=== PATIENT | female | born 1945 | race Caucasian/White ===

== ENCOUNTER 2024-06-15 10:33 | Inpatient (IN) | payer MEDICARE, MEDICAID ==
[2024-06-15 11:13] LABS: #Basophils 0.04 10x3/uL (0.0-0.2); %Basophils 0.4 % (0.0-1.0); %Eosinophils 1.6 % (0.0-10.0); %Lymphocytes 11.2 % (21.0-51.0); %Monocytes 8.8 % (0.0-10.0); %Neutrophils 77.6 % (42.0-75.0); Hematocrit 38.7 % (36.0-47.0); Hemoglobin 12.8 g/dL (12.0-16.0); Mean Corpuscular HGB CONC 33.1 g/dL (32.0-36.0); Mean Corpuscular Hemoglobin 31.4 pg (27.0-31.0); Mean Corpuscular Volume 95.1 fL (78.0-98.0); Mean Platelet Volume 9.5 fL (7.4-10.4); Platelet Count 337 10x3/uL (130-400); RBC Distribution Width 13.5 % (11.5-14.5); Red Blood Cell (RBC) Count 4.07 mill/uL (4.20-5.40)
[2024-06-15 11:41] LABS: ALT (SGPT) 9 U/L (8-55); AST (SGOT) 16 U/L (5-34); Albumin 3.4 g/dL (3.4-4.8); Alkaline Phosphatase 128 U/L (40-110); Anion Gap 19 mmol/L (10-20); BUN (Urea Nitrogen) 48 mg/dL (9.8-20.1); Bilirubin, Total 0.4 mg/dL (0.2-1.2); Calc. Creatinine Clearance 0 mL/min (70-130); Calcium 9.7 mg/dL (7.8-10.44); Carbon Dioxide 14 mmol/L (23-31); Chloride 112 mmol/L (98-107); Estimated GFR 29; Globulin 3.7 g/dL (2.4-3.5); Glucose 129 mg/dL (83-110); Lipase 14 U/L (8-78); Magnesium 1.4 mg/dL (1.6-2.6); Protein, Total 7.1 g/dL (5.8-8.1); Sodium 140 mmol/L (136-145)
[2024-06-15 11:47] LABS: Troponin I 0.024 ng/mL (< 0.028)
[2024-06-15] MEDS ORDERED: Ondansetron PF 4 MG/2 ML Vial ONE (11:52)
[2024-06-15] MEDS ORDERED: Magnesium 2 GM/50 ML BAG (IN WATER) ONE (12:58)
[2024-06-15 14:59] LABS: Lactic Acid 0.62 mmol/L (0.5-2.2)
[2024-06-15 15:25] LABS: Bacteria/HPF 4+ HPF (None Seen); Bilirubin Negative (Negative); Blood, Urine Negative (Negative); CAUTI Indications for Culture Alt mental st,lethar; Clarity Clear (Clear); Glucose, Urine (Dipstick) Normal (Negative); Ketone, Urine Trace mg/dL (Negative); Leukocyte 500 Leu/uL (Negative); Nitrite 2+ (Negative); Protein, Urine (Dipstick) Negative (Neg-Trace); RBC/HPF None Seen HPF (0-3); Specific Gravity, Urine 1.007 (1.002-1.036); Squamous Epithelial 0-3 HPF (0-3); Urobilinogen Normal mg/dL (Less than 2); pH, Urine 5.5 (5.0-9.0)
[2024-06-15 15:27] LABS: Urine Culture Reflex Yes Yes
[2024-06-15] MEDS ORDERED: cefTRIAXone (ROCEPHIN) 2 GM VIAL ONE (15:45)
[2024-06-15] MEDS ORDERED: Sodium Chloride 0.9% 100 ML ONE (15:45)
[2024-06-15] MEDS ORDERED: Ondansetron PF 4 MG/2 ML Vial IVP PRN (16:23)
[2024-06-15 17:49] VITALS: BMI 20.9
[2024-06-15] MEDS: Sodium Chloride 0.9% 1,000 ML IV SCH (18:36)
[2024-06-16 05:51] LABS: #Basophils 0.03 10x3/uL (0.0-0.2); %Basophils 0.4 % (0.0-1.0); %Eosinophils 3.5 % (0.0-10.0); %Lymphocytes 13.7 % (21.0-51.0); %Monocytes 7.8 % (0.0-10.0); %Neutrophils 74.4 % (42.0-75.0); Hematocrit 35.3 % (36.0-47.0); Hemoglobin 11.7 g/dL (12.0-16.0); Mean Corpuscular HGB CONC 33.1 g/dL (32.0-36.0); Mean Corpuscular Hemoglobin 30.7 pg (27.0-31.0); Mean Corpuscular Volume 92.7 fL (78.0-98.0); Mean Platelet Volume 9.6 fL (7.4-10.4); Platelet Count 304 10x3/uL (130-400); RBC Distribution Width 13.7 % (11.5-14.5); Red Blood Cell (RBC) Count 3.81 mill/uL (4.20-5.40)
[2024-06-16 06:13] LABS: Anion Gap 13 mmol/L (10-20); BUN (Urea Nitrogen) 29 mg/dL (9.8-20.1); Calc. Creatinine Clearance 35 mL/min (70-130); Calcium 8.4 mg/dL (7.8-10.44); Carbon Dioxide 18 mmol/L (23-31); Chloride 116 mmol/L (98-107); Estimated GFR 43; Glucose 122 mg/dL (83-110); Potassium 4.6 mmol/L (3.5-5.1); Sodium 142 mmol/L (136-145)
[2024-06-16] MEDS: Acetaminophen 325 MG TAB PO PRN (11:16)
[2024-06-16] MEDS: valACYclovir 500 MG TAB PO SCH (11:17)
[2024-06-16] MEDS: Enoxaparin 40 MG (0.4 mL) SYRINGE SC SCH (11:18)
[2024-06-16] MEDS: Enoxaparin 30 MG (0.3 mL) SYRINGE SC SCH (11:48)
[2024-06-16 15:52] VITALS: BMI 20.9
[2024-06-16] MEDS: cefTRIAXone\\ROCEPHIN 1 GM in Sodium Chloride 0.9% 100 ML IVPB SCH (16:01)
[2024-06-17] MEDS: Levothyroxine Sodium 125 MCG TAB PO SCH (05:46)
[2024-06-17 06:33] LABS: #Basophils 0.03 10x3/uL (0.0-0.2); %Basophils 0.5 % (0.0-1.0); %Eosinophils 5.9 % (0.0-10.0); %Lymphocytes 15.1 % (21.0-51.0); %Monocytes 7.3 % (0.0-10.0); %Neutrophils 70.9 % (42.0-75.0); Hematocrit 32.5 % (36.0-47.0); Hemoglobin 10.8 g/dL (12.0-16.0); Mean Corpuscular HGB CONC 33.2 g/dL (32.0-36.0); Mean Corpuscular Hemoglobin 31.1 pg (27.0-31.0); Mean Corpuscular Volume 93.7 fL (78.0-98.0); Mean Platelet Volume 8.9 fL (7.4-10.4); Platelet Count 257 10x3/uL (130-400); RBC Distribution Width 13.5 % (11.5-14.5); Red Blood Cell (RBC) Count 3.47 mill/uL (4.20-5.40)
[2024-06-17 07:35] LABS: ALT (SGPT) 8 U/L (8-55); AST (SGOT) 11 U/L (5-34); Albumin 2.3 g/dL (3.4-4.8); Alkaline Phosphatase 87 U/L (40-110); Anion Gap 11 mmol/L (10-20); BUN (Urea Nitrogen) 14 mg/dL (9.8-20.1); Bilirubin, Total 0.3 mg/dL (0.2-1.2); Calc. Creatinine Clearance 49 mL/min (70-130); Carbon Dioxide 21 mmol/L (23-31); Chloride 114 mmol/L (98-107); Estimated GFR 65; Globulin 2.4 g/dL (2.4-3.5); Glucose 114 mg/dL (83-110); Potassium 4.2 mmol/L (3.5-5.1); Protein, Total 4.7 g/dL (5.8-8.1); Sodium 142 mmol/L (136-145)
[2024-06-17] MEDS: Enoxaparin 40 MG (0.4 mL) SYRINGE SC SCH (09:05)
[2024-06-17] MEDS: valACYclovir 500 MG TAB PO SCH (09:05)
[2024-06-17] MEDS ORDERED: Megestrol Acetate 800 MG/20 ML UDCUP PO SCH (13:04)
[2024-06-17] MEDS: Megestrol Acetate 800 MG/20 ML UDCUP PO SCH (13:26)
[2024-06-17] MEDS: Sodium Chloride 0.9% 1,000 ML IV SCH (13:26)
[2024-06-17] MEDS: Trospium 20 MG TAB PO SCH (20:40)
[2024-06-17] MEDS: Zolpidem Tartrate 5 MG TAB PO SCH (20:40)
[2024-06-18 05:28] LABS: #Basophils Less than 0.03 10x3/uL (0.0-0.2); %Basophils 0.3 % (0.0-1.0); %Eosinophils 6.6 % (0.0-10.0); %Lymphocytes 18.2 % (21.0-51.0); %Neutrophils 66.5 % (42.0-75.0); Hemoglobin 10.5 g/dL (12.0-16.0); Mean Corpuscular HGB CONC 32.8 g/dL (32.0-36.0); Mean Corpuscular Hemoglobin 31.2 pg (27.0-31.0); Mean Platelet Volume 9.2 fL (7.4-10.4); Platelet Count 265 10x3/uL (130-400); RBC Distribution Width 13.2 % (11.5-14.5); Red Blood Cell (RBC) Count 3.37 mill/uL (4.20-5.40)
[2024-06-18 05:42] LABS: ALT (SGPT) 7 U/L (8-55); AST (SGOT) 10 U/L (5-34); Albumin 2.2 g/dL (3.4-4.8); Alkaline Phosphatase 83 U/L (40-110); Anion Gap 11 mmol/L (10-20); BUN (Urea Nitrogen) 7 mg/dL (9.8-20.1); Bilirubin, Total 0.3 mg/dL (0.2-1.2); Calc. Creatinine Clearance 56 mL/min (70-130); Calcium 7.7 mg/dL (7.8-10.44); Carbon Dioxide 21 mmol/L (23-31); Chloride 112 mmol/L (98-107); Estimated GFR 76; Globulin 2.5 g/dL (2.4-3.5); Glucose 118 mg/dL (83-110); Potassium 3.6 mmol/L (3.5-5.1); Protein, Total 4.7 g/dL (5.8-8.1); Sodium 140 mmol/L (136-145)
[2024-06-18 07:54] VITALS: TEMP 97.7
[2024-06-18] MEDS: Megestrol Acetate 800 MG/20 ML UDCUP PO SCH (09:11)
[2024-06-18] MEDS: Escitalopram Oxalate 10 mg Tablet PO SCH (09:12)
[2024-06-18] MEDS: FLU (Fluad Triv) TS24-25 (65UP)/MF59C/PF 45 MCG/0.5 ML Syringe IM ONE (15:04)
[2024-06-18 15:09] VITALS: BP 117/74
== END 2024-06-18 15:52 | disposition home or self-care (01) | DRG 683 ==
LOC: ERS 10:33 → T4-A 16:19 → OBSVTOIN 06-16 11:01
PROVIDERS: ADMIT Internal Medicine; ATTEND Internal Medicine
DX: N17.9 Acute kidney failure, unspecified (principal); C34.90 Malignant neoplasm of unspecified part of unspecified bronchus or lung; N39.0 Urinary tract infection, site not specified; E03.9 Hypothyroidism, unspecified; I10 Essential (primary) hypertension; Z90.710 Acquired absence of both cervix and uterus; Z90.49 Acquired absence of other specified parts of digestive tract; Z98.890 Other specified postprocedural states; Z87.891 Personal history of nicotine dependence; E83.42 Hypomagnesemia; E86.0 Dehydration; Z66 Do not resuscitate
CPT/HCPCS: 36415; 36416; 70450; 71045; 72170; 80048; 80053; 81001; 83605; 83690; 83735; 84484; 85025; 87077; 87086; 87186; 93005; 96361; 96365; 96366; 96367; 96375; G0378; J0696; J1642; J1650; J2405; J3475; J7030

== ENCOUNTER 2024-06-27 22:34 | Inpatient (IN) | payer MEDICARE, MEDICAID ==
[2024-06-27] MEDS ORDERED: Morphine 2 MG/ML VIAL ONE (23:48)
[2024-06-27] MEDS ORDERED: Ipratropium/Albuterol 3 ML NEB ONE (23:48)
[2024-06-27 23:57] LABS: #Basophils 0.03 10x3/uL (0.0-0.2); %Basophils 0.3 % (0.0-1.0); %Eosinophils 3.6 % (0.0-10.0); %Lymphocytes 9.5 % (21.0-51.0); %Monocytes 6.6 % (0.0-10.0); %Neutrophils 79.6 % (42.0-75.0); Hematocrit 31.8 % (36.0-47.0); Hemoglobin 10.1 g/dL (12.0-16.0); Mean Corpuscular HGB CONC 31.8 g/dL (32.0-36.0); Mean Corpuscular Hemoglobin 31.2 pg (27.0-31.0); Mean Corpuscular Volume 98.1 fL (78.0-98.0); Mean Platelet Volume 9.4 fL (7.4-10.4); Platelet Count 232 10x3/uL (130-400); RBC Distribution Width 13.3 % (11.5-14.5); Red Blood Cell (RBC) Count 3.24 mill/uL (4.20-5.40)
[2024-06-28 00:19] LABS: ALT (SGPT) 7 U/L (8-55); AST (SGOT) 12 U/L (5-34); Albumin 2.4 g/dL (3.4-4.8); Alkaline Phosphatase 76 U/L (40-110); Anion Gap 16 mmol/L (10-20); BUN (Urea Nitrogen) 16 mg/dL (9.8-20.1); Bilirubin, Total 0.4 mg/dL (0.2-1.2); Calc. Creatinine Clearance 0 mL/min (70-130); Calcium 7.3 mg/dL (7.8-10.44); Carbon Dioxide 22 mmol/L (23-31); Chloride 106 mmol/L (98-107); Estimated GFR 37; Globulin 2.6 g/dL (2.4-3.5); Glucose 115 mg/dL (83-110); Potassium 3.8 mmol/L (3.5-5.1); Sodium 140 mmol/L (136-145)
[2024-06-28] MEDS ORDERED: Sodium Chloride 0.9% 100 ML ONE (01:29)
[2024-06-28] MEDS ORDERED: cefTRIAXone (ROCEPHIN) 2 GM VIAL ONE (01:29)
[2024-06-28] MEDS ORDERED: Morphine 2 MG/ML VIAL ONE (01:29)
[2024-06-28] MEDS ORDERED: CALCIUM GLUC 1 GM/NS 50 ML IV Bag ONE (01:58)
[2024-06-28 02:06] LABS: Bacteria/HPF None Seen HPF (None Seen); Bilirubin Negative (Negative); Blood, Urine Negative (Negative); CAUTI Indications for Culture Immunosuppressed; Clarity Clear (Clear); Glucose, Urine (Dipstick) Normal (Negative); Ketone, Urine 10 mg/dL (Negative); Leukocyte 75 Leu/uL (Negative); Nitrite Negative (Negative); Protein, Urine (Dipstick) Negative (Neg-Trace); RBC/HPF None Seen HPF (0-3); Specific Gravity, Urine 1.008 (1.002-1.036); Squamous Epithelial 0-3 HPF (0-3); Transitional Epithelial 0-3 HPF (None Seen); Urobilinogen Normal mg/dL (Less than 2); WBC/HPF 0-3 HPF (0-3); pH, Urine 5.5 (5.0-9.0)
[2024-06-28 02:07] LABS: Urine Culture Reflex No No; Urine Culture Reflex Yes Yes
[2024-06-28 02:38] LABS: Magnesium 0.8 mg/dL (1.6-2.6)
[2024-06-28] MEDS ORDERED: Ondansetron PF 4 MG/2 ML Vial IVP PRN (03:00)
[2024-06-28] MEDS ORDERED: Acetaminophen 325 MG TAB PO PRN (03:00)
[2024-06-28] MEDS ORDERED: Ondansetron ODT 4 MG TAB SL PRN (03:00)
[2024-06-28] MEDS ORDERED: Magnesium 2 GM/50 ML BAG (IN WATER) ONE (03:37)
[2024-06-28] MEDS ORDERED: Vancomycin (BATCH) 1.5 GM in Premix 1 BAG IVPB SCH (04:00)
[2024-06-28 04:47] VITALS: BMI 22.1
[2024-06-28] MEDS: Magnesium 2 GM/50 ML(in water) 2 GM in Premix 1 BAG IVPB SCH (05:02)
[2024-06-28] MEDS: Sodium Chloride 0.9% 1,000 ML IV SCH (05:03)
[2024-06-28] MEDS: Vancomycin (BATCH) 1.25 GM in Premix 1 BAG IVPB SCH (05:11)
[2024-06-28] MEDS: Magnesium Sulfate 2 GM in Sodium Chloride 0.9% 100 ML IVPB SCH (06:07)
[2024-06-28 06:29] LABS: #Basophils Less than 0.03 10x3/uL (0.0-0.2); %Basophils 0.3 % (0.0-1.0); %Eosinophils 4.2 % (0.0-10.0); %Lymphocytes 11.8 % (21.0-51.0); %Monocytes 5.4 % (0.0-10.0); %Neutrophils 77.9 % (42.0-75.0); Hematocrit 28.3 % (36.0-47.0); Hemoglobin 9.3 g/dL (12.0-16.0); Mean Corpuscular HGB CONC 32.9 g/dL (32.0-36.0); Mean Corpuscular Hemoglobin 31.4 pg (27.0-31.0); Mean Corpuscular Volume 95.6 fL (78.0-98.0); Mean Platelet Volume 9.4 fL (7.4-10.4); Platelet Count 226 10x3/uL (130-400); RBC Distribution Width 13.4 % (11.5-14.5); Red Blood Cell (RBC) Count 2.96 mill/uL (4.20-5.40)
[2024-06-28 07:16] LABS: Anion Gap 15 mmol/L (10-20); BUN (Urea Nitrogen) 14 mg/dL (9.8-20.1); CK (CPK) 57 U/L (29-168); Calc. Creatinine Clearance 38 mL/min (70-130); Calcium 7.3 mg/dL (7.8-10.44); Carbon Dioxide 22 mmol/L (23-31); Chloride 107 mmol/L (98-107); Estimated GFR 45; Glucose 109 mg/dL (83-110); Magnesium 2.5 mg/dL (1.6-2.6); Potassium 3.3 mmol/L (3.5-5.1); Sodium 141 mmol/L (136-145)
[2024-06-28] MEDS: Ipratropium/Albuterol 3 ML NEB EZPAP SCH (08:12)
[2024-06-28 08:47] LABS: Influenza A by NAA Not Detected (NotDetected); Influenza B by NAA Not Detected (NotDetected); SARS-CoV-2 NAA Rapid Test Not Detected (NotDetected)
[2024-06-28] MEDS: Heparin 5,000 UNITS/ML VIAL SC SCH (09:16)
[2024-06-28] MEDS: Senokot S 8.6-50 MG TAB PO SCH (09:16)
[2024-06-28] MEDS: Polyethylene Glycol 3350 17 GM Packet PO SCH (09:16)
[2024-06-28 11:04] LABS: Legionella Urinary Ag Negative (Negative); Strep pneumo Urine Ag NEGATIVE (NEGATIVE)
[2024-06-28] MEDS: Potassium Chloride 20 MEQ TAB PO SCH (13:17)
[2024-06-28] MEDS: Cefepime 1 GM in Sodium Chloride 0.9% 100 ML IVPB SCH (13:18)
[2024-06-28] MEDS: Hydrocortisone 10 mg Tablet PO SCH (15:42)
[2024-06-28] MEDS ORDERED: Non-Formulary Item 1 EACH (Tolterodine Tartrate [Tolterodine Tartrate Er] 4 MG Cap.Er.24h PO SCH (21:00)
[2024-06-28] MEDS ORDERED: Vancomycin HCl 750 MG in Sodium Chloride 0.9% 250 ML 250 ML IVPB SCH (21:00)
[2024-06-28] MEDS: Vancomycin 1 GM in Premix 1 BAG IVPB SCH (21:30)
[2024-06-28] MEDS: Zolpidem Tartrate 5 MG TAB PO SCH (22:40)
[2024-06-29] MEDS: Benzonatate 100 MG CAP PO PRN (04:09)
[2024-06-29 04:22] LABS: #Basophils Less than 0.03 10x3/uL (0.0-0.2); #Eosinophils Less than 0.03 10x3/uL (0.0-0.7); %Basophils 0.3 % (0.0-1.0); %Eosinophils 0.3 % (0.0-10.0); %Lymphocytes 8.1 % (21.0-51.0); %Monocytes 3.9 % (0.0-10.0); %Neutrophils 87.1 % (42.0-75.0); Hematocrit 26.3 % (36.0-47.0); Hemoglobin 8.4 g/dL (12.0-16.0); Mean Corpuscular HGB CONC 31.9 g/dL (32.0-36.0); Mean Corpuscular Hemoglobin 30.9 pg (27.0-31.0); Mean Corpuscular Volume 96.7 fL (78.0-98.0); Mean Platelet Volume 9.8 fL (7.4-10.4); Platelet Count 242 10x3/uL (130-400); RBC Distribution Width 13.5 % (11.5-14.5); Red Blood Cell (RBC) Count 2.72 mill/uL (4.20-5.40)
[2024-06-29 04:37] LABS: Vancomycin, Random 23.1 ug/mL (See Comment)
[2024-06-29 04:45] LABS: Anion Gap 14 mmol/L (10-20); BUN (Urea Nitrogen) 12 mg/dL (9.8-20.1); Calc. Creatinine Clearance 40 mL/min (70-130); Calcium 7.2 mg/dL (7.8-10.44); Carbon Dioxide 19 mmol/L (23-31); Chloride 110 mmol/L (98-107); Estimated GFR 49; Glucose 150 mg/dL (83-110); Magnesium 1.4 mg/dL (1.6-2.6); Potassium 3.9 mmol/L (3.5-5.1); Sodium 139 mmol/L (136-145)
[2024-06-29] MEDS: Levothyroxine Sodium 125 MCG TAB PO SCH (06:14)
[2024-06-29] MEDS: ALPRAZolam 0.25 MG TAB PO SCH (09:01)
[2024-06-29] MEDS: valACYclovir 500 MG TAB PO SCH (09:01)
[2024-06-29] MEDS: Escitalopram Oxalate 10 mg Tablet PO SCH (09:01)
[2024-06-29] MEDS: Magnesium Sulfate In Water 4 GM in Premix 1 BAG IVPB SCH (10:48)
[2024-06-29] MEDS: Magnesium Sulfate 4 GM in Sodium Chloride 0.9% 250 ML 250 ML IVPB SCH (11:03)
[2024-06-29] MEDS: Cefepime 2 GM in Sodium Chloride 0.9% 100 ML IVPB SCH (12:57)
[2024-06-29] MEDS: Bisacodyl 10 MG SUPP PR PRN (14:24)
[2024-06-29 17:25] VITALS: BP 146/71; TEMP 98
[2024-06-29] MEDS ORDERED: Zolpidem Tartrate 5 MG TAB PO SCH (21:00)
== END 2024-06-29 17:54 | disposition home or self-care (01) | DRG 194 ==
LOC: ERS 22:34 → ERHOLD 06-28 02:48 → 2SE 06-28 04:32
PROVIDERS: ADMIT Internal Medicine; ATTEND Internal Medicine
DX: J18.9 Pneumonia, unspecified organism (principal); C34.90 Malignant neoplasm of unspecified part of unspecified bronchus or lung; N17.9 Acute kidney failure, unspecified; E86.0 Dehydration; E03.9 Hypothyroidism, unspecified; I10 Essential (primary) hypertension; F41.9 Anxiety disorder, unspecified; F32.A Depression, unspecified; E83.42 Hypomagnesemia; Z66 Do not resuscitate; Z79.01 Long term (current) use of anticoagulants; Z79.899 Other long term (current) drug therapy; Z90.710 Acquired absence of both cervix and uterus; Z90.49 Acquired absence of other specified parts of digestive tract; Z87.891 Personal history of nicotine dependence
CPT/HCPCS: 36415; 51701; 70450; 71045; 72125; 72220; 80048; 80053; 80202; 81001; 82550; 83605; 83735; 84145; 84443; 85025; 87040; 87070; 87077; 87081; 87086; 87205; 87449; 87899; 93005; 94640; 96365; 96375; 96376; J0613; J0692; J0696; J1642; J1644; J2272; J3370; J3370-JW; J3475; J7030; J7620

== ENCOUNTER 2024-09-16 16:00 | Inpatient (IN) | payer MEDICARE, MEDICAID ==
[~2024-09-16 16:00] MED LIST: Iopamidol-370 76% 500 ML MDV (1 ML CHARGE) ONE; Magnevist 469MG/ML 20 ML VIAL ONE
[2024-09-16 16:42] LABS: #Basophils 0.05 10x3/uL (0.0-0.2); %Basophils 0.2 % (0.0-1.0); %Eosinophils 0.1 % (0.0-10.0); %Lymphocytes 5.8 % (21.0-51.0); %Neutrophils 89.6 % (42.0-75.0); Hematocrit 37.3 % (36.0-47.0); Hemoglobin 12.1 g/dL (12.0-16.0); Mean Corpuscular HGB CONC 32.4 g/dL (32.0-36.0); Mean Corpuscular Hemoglobin 32.8 pg (27.0-31.0); Mean Corpuscular Volume 101.1 fL (78.0-98.0); Mean Platelet Volume 9.2 fL (7.4-10.4); Platelet Count 392 10x3/uL (130-400); RBC Distribution Width 14.9 % (11.5-14.5); Red Blood Cell (RBC) Count 3.69 mill/uL (4.20-5.40)
[2024-09-16 16:45] LABS: Actual Bicarbonate (HCO3v) 27.3 mEq/L (22-28); Base Excess 2.6 mEq/L (-2.0 to +3.0); Calcium, Ionized (venous) 0.99 mmol/L (1.16-1.32); Chloride (VBG) 99 mmol/L (98-106); Hematocrit-VBG 39 % (36.0-47.0); Hemoglobin (Hb) 13.4 g/dL (11.7-16.1); Potassium (VBG) 2.71 mmol/L (3.70-5.30); Sodium 142 mmol/L (133-146); pH (venous) 7.426 (7.32-7.43)
[2024-09-16 16:59] LABS: Acetaminophen Less than 10 mcg/mL (Less than 10); Alcohol Less than 10.0 mg/dL (Less than 10); Salicylate Less than 8.0 mg/dL (Less than 8.0)
[2024-09-16 17:00] LABS: Prothrombin Time 13.5 sec (12.0-14.7)
[2024-09-16 17:01] LABS: PTT 24.1 sec (22.9-36.1)
[2024-09-16 17:04] LABS: D-Dimer Test 3.28 mcg/mL (0.27-0.43)
[2024-09-16 17:07] LABS: ALT (SGPT) 13 U/L (8-55); AST (SGOT) 25 U/L (5-34); Albumin 3.3 g/dL (3.4-4.8); Alkaline Phosphatase 79 U/L (40-110); Anion Gap 16 mmol/L (10-20); BUN (Urea Nitrogen) 23 mg/dL (9.8-20.1); Bilirubin, Total 0.4 mg/dL (0.2-1.2); CK (CPK) 167 U/L (29-168); Calc. Creatinine Clearance 0 mL/min (70-130); Calcium 8.2 mg/dL (7.8-10.44); Carbon Dioxide 29 mmol/L (23-31); Chloride 101 mmol/L (98-107); Estimated GFR 42; Globulin 3.1 g/dL (2.4-3.5); Glucose 243 mg/dL (83-110); Potassium 2.6 mmol/L (3.5-5.1); Protein, Total 6.4 g/dL (5.8-8.1); Sodium 143 mmol/L (136-145); Troponin I 0.278 ng/mL (< 0.028)
[2024-09-16] MEDS ORDERED: Potassium Chloride 20 MEQ TAB ONE (17:29)
[2024-09-16] MEDS ORDERED: Glucagon 1 MG/ML KIT IM PRN (19:11)
[2024-09-16] MEDS ORDERED: Acetaminophen 650 MG Suppository PR PRN (19:11)
[2024-09-16] MEDS ORDERED: Ondansetron PF 4 MG/2 ML Vial IVP PRN (19:11)
[2024-09-16] MEDS ORDERED: Dextrose 50% Abboject 50 ML SYRINGE SLOW IVP PRN (19:11)
[2024-09-16] MEDS ORDERED: Dextrose 5% in Water 1,000 ML IV PRN (19:11)
[2024-09-16] MEDS ORDERED: Lorazepam 2 MG/ML VIAL SLOW IVP PRN (19:11)
[2024-09-16] MEDS ORDERED: Ondansetron ODT 4 MG TAB PO PRN (19:11)
[2024-09-16] MEDS ORDERED: Senokot S 8.6-50 MG TAB PO PRN (19:11)
[2024-09-16] MEDS ORDERED: HYDROcodone/Acetaminophen 5/325 mg Tablet PO PRN (19:18)
[2024-09-16] MEDS ORDERED: Ipratropium Bromide 2.5 ml Neb NEB PRN (19:20)
[2024-09-16] MEDS ORDERED: Sodium Chloride 0.9% 100 ML ONE (19:32)
[2024-09-16] MEDS ORDERED: cefTRIAXone (ROCEPHIN) 2 GM VIAL ONE (19:32)
[2024-09-16 19:53] LABS: Lactic Acid 1.68 mmol/L (0.5-2.2)
[2024-09-16 19:53] LABS: Bacteria/HPF 2+ HPF (None Seen); Bilirubin Negative (Negative); Blood, Urine 1+ (Negative); CAUTI Indications for Culture Alt mental st,lethar; Clarity Turbid (Clear); Glucose, Urine (Dipstick) 100 mg/dL (Negative); Ketone, Urine Negative (Negative); Leukocyte 500 Leu/uL (Negative); Nitrite Negative (Negative); Protein, Urine (Dipstick) 50 mg/dL (Neg-Trace); RBC/HPF 0-3 HPF (0-3); Specific Gravity, Urine 1.011 (1.002-1.036); Urobilinogen Normal mg/dL (Less than 2); WBC/HPF Greater than 50 HPF (0-3)
[2024-09-16 19:54] LABS: Urine Culture Reflex Yes Yes
[2024-09-16 19:55] LABS: Amphetamine Not Detected (NotDetected); Barbiturates Screen Not Detected (NotDetected); Benzodiazepine Screen Not Detected (NotDetected); Cocaine Metabolite Screen Not Detected (NotDetected); Methadone Not Detected (NotDetected); Methamphetamine Not Detected (NotDetected); Opiate Screen Detected (NotDetected); Oxycodone Screen Not Detected (NotDetected); Phencyclidine (PCP) Not Detected (NotDetected); THC/Cannabinoid Screen Not Detected (NotDetected); Tricyclic Screen Not Detected (NotDetected)
[2024-09-16] MEDS ORDERED: Potassium Chloride 20 MEQ (100 mL) BAG ONE (20:03)
[2024-09-16 20:11] LABS: Magnesium 0.9 mg/dL (1.6-2.6); Troponin I 0.887 ng/mL (< 0.028)
[2024-09-16] MEDS ORDERED: Magnesium Sulfate In Water 4 GM in Premix 1 BAG IVPB SCH (20:30)
[2024-09-16] MEDS: Magnesium 2 GM/50 ML(in water) 2 GM in Premix 1 BAG IVPB SCH (21:44)
[2024-09-16] MEDS: Famotidine 20 MG TAB PO SCH (21:52)
[2024-09-16] MEDS: Bisacodyl 5 MG TAB PO SCH (21:53)
[2024-09-16] MEDS: Aspirin 325 mg Enteric Coated Tablet PO SCH (21:53)
[2024-09-16] MEDS: Polyethylene Glycol 3350 17 GM Packet PO SCH (21:53)
[2024-09-16] MEDS: Acetaminophen 325 MG TAB PO PRN (21:53)
[2024-09-16] MEDS: Vancomycin 1.5 GRAM/300 ML BAG 1.5 GM in Premix 1 BAG IVPB SCH (22:00)
[2024-09-16 22:23] VITALS: BMI 21.1
[2024-09-16 22:52] LABS: Troponin I 1.108 ng/mL (< 0.028)
[2024-09-16] MEDS: Ipratropium/Albuterol 3 ML NEB NEB SCH (23:09)
[2024-09-16] MEDS: Lactated Ringer's 1,000 ML IV SCH (23:49)
[2024-09-16] MEDS: Enoxaparin 60 MG (0.6 mL) SYRINGE SC SCH (23:54)
[2024-09-17] MEDS: Potassium Chloride 20 MEQ TAB PO SCH ×3 (02:42→19:49)
[2024-09-17 02:55] LABS: Troponin I 1.219 ng/mL (< 0.028)
[2024-09-17 04:03] LABS: #Basophils Less than 0.03 10x3/uL (0.0-0.2); %Basophils 0.1 % (0.0-1.0); %Eosinophils 0.6 % (0.0-10.0); %Lymphocytes 4.7 % (21.0-51.0); %Monocytes 2.5 % (0.0-10.0); %Neutrophils 91.8 % (42.0-75.0); Hematocrit 37.2 % (36.0-47.0); Hemoglobin 11.9 g/dL (12.0-16.0); Mean Corpuscular Hemoglobin 32.4 pg (27.0-31.0); Mean Corpuscular Volume 101.4 fL (78.0-98.0); Mean Platelet Volume 9.5 fL (7.4-10.4); Platelet Count 367 10x3/uL (130-400); RBC Distribution Width 14.9 % (11.5-14.5); Red Blood Cell (RBC) Count 3.67 mill/uL (4.20-5.40)
[2024-09-17 04:26] LABS: Anion Gap 17 mmol/L (10-20); BUN (Urea Nitrogen) 17 mg/dL (9.8-20.1); Calc. Creatinine Clearance 46 mL/min (70-130); Calcium 7.8 mg/dL (7.8-10.44); Carbon Dioxide 22 mmol/L (23-31); Chloride 105 mmol/L (98-107); Estimated GFR 60; Glucose 98 mg/dL (83-110); Magnesium 2.5 mg/dL (1.6-2.6); Potassium 2.8 mmol/L (3.5-5.1); Sodium 141 mmol/L (136-145)
[2024-09-17] MEDS ORDERED: Vancomycin 1 GM in Premix 1 BAG IVPB SCH (08:00)
[2024-09-17 08:48] LABS: Critical Call Chem Troponin I RESULT DECREASING; Troponin I 0.812 ng/mL (< 0.028)
[2024-09-17] MEDS ORDERED: Pantoprazole 40 MG GRANULES PACKET PO SCH (09:00)
[2024-09-17] MEDS ORDERED: Enoxaparin 40 MG (0.4 mL) SYRINGE SC SCH ×2 (09:00→21:00)
[2024-09-17] MEDS: valACYclovir 500 MG TAB PO SCH (09:46)
[2024-09-17] MEDS: Polyethylene Glycol 3350 17 GM Packet PO SCH (09:47)
[2024-09-17] MEDS: Pantoprazole 40 MG DR.TAB PO SCH (09:47)
[2024-09-17] MEDS: Enoxaparin 60 MG (0.6 mL) SYRINGE SC SCH (09:47)
[2024-09-17] MEDS: Vancomycin 1 GM in Premix 1 BAG IVPB SCH (09:58)
[2024-09-17] MEDS: Insulin Lispro 100 UNIT/ML 10 ML VIAL SC PRN ×2 (12:28→21:31)
[2024-09-17] MEDS: levETIRAcetam 500 MG TAB PO SCH ×2 (12:28→20:10)
[2024-09-17 13:46] LABS: Anion Gap 19 mmol/L (10-20); BUN (Urea Nitrogen) 13 mg/dL (9.8-20.1); Calc. Creatinine Clearance 49 mL/min (70-130); Calcium 7.8 mg/dL (7.8-10.44); Carbon Dioxide 19 mmol/L (23-31); Chloride 99 mmol/L (98-107); Estimated GFR 65; Glucose 173 mg/dL (83-110); Potassium 3.4 mmol/L (3.5-5.1); Sodium 134 mmol/L (136-145)
[2024-09-17] MEDS ORDERED: Ipratropium Bromide 2.5 ml Neb NEB PRN (14:03)
[2024-09-17] MEDS: Hydrocortisone 10 mg Tablet PO SCH ×2 (17:05→20:09)
[2024-09-17] MEDS: Lactated Ringer's 500 ML IV SCH (17:05)
[2024-09-17] MEDS: Trospium 20 MG TAB PO SCH (20:10)
[2024-09-17] MEDS: cefTRIAXone\\ROCEPHIN 1 GM in Sodium Chloride 0.9% 100 ML IVPB SCH (20:11)
[2024-09-17] MEDS ORDERED: HYDROCORTISONE 20 MG PO SCH (21:00)
[2024-09-17] MEDS: Lorazepam 1 MG TAB PO SCH (21:31)
[2024-09-17] MEDS: Zolpidem Tartrate 5 MG TAB PO SCH (21:31)
[2024-09-18] MEDS: Levothyroxine Sodium 125 MCG TAB PO SCH (06:00)
[2024-09-18] MEDS: Enoxaparin 40 MG (0.4 mL) SYRINGE SC SCH (08:16)
[2024-09-18] MEDS: ALPRAZolam 0.25 MG TAB PO SCH (08:17)
[2024-09-18] MEDS: Pantoprazole 40 MG DR.TAB PO SCH (08:18)
[2024-09-18] MEDS: Escitalopram Oxalate 10 mg Tablet PO SCH (08:27)
[2024-09-18] MEDS ORDERED: Electrolyte Replacement Protocol FS PRN (08:30)
[2024-09-18] MEDS: Potassium Chloride 20 MEQ TAB PO SCH (08:50)
[2024-09-18 10:18] LABS: #Basophils Less than 0.03 10x3/uL (0.0-0.2); %Basophils 0.3 % (0.0-1.0); %Eosinophils 1.2 % (0.0-10.0); %Lymphocytes 6.4 % (21.0-51.0); %Neutrophils 88.8 % (42.0-75.0); Hemoglobin 9.5 g/dL (12.0-16.0); Mean Corpuscular HGB CONC 31.7 g/dL (32.0-36.0); Mean Corpuscular Hemoglobin 32.4 pg (27.0-31.0); Mean Corpuscular Volume 102.4 fL (78.0-98.0); Mean Platelet Volume 9.4 fL (7.4-10.4); Platelet Count 294 10x3/uL (130-400); RBC Distribution Width 14.9 % (11.5-14.5); Red Blood Cell (RBC) Count 2.93 mill/uL (4.20-5.40)
[2024-09-18 10:36] LABS: Anion Gap 11 mmol/L (10-20); BUN (Urea Nitrogen) 15 mg/dL (9.8-20.1); Calc. Creatinine Clearance 43 mL/min (70-130); Calcium 8.2 mg/dL (7.8-10.44); Carbon Dioxide 26 mmol/L (23-31); Chloride 104 mmol/L (98-107); Estimated GFR 57; Glucose 153 mg/dL (83-110); Magnesium 1.5 mg/dL (1.6-2.6); Phosphorus 2.5 mg/dL (2.3-4.7); Potassium 4.6 mmol/L (3.5-5.1); Sodium 136 mmol/L (136-145)
[2024-09-18] MEDS: Magnesium 2 GM/50 ML(in water) 2 GM in Premix 1 BAG IVPB SCH (12:37)
[2024-09-18] MEDS: Magnesium Oxide 400 MG TAB PO SCH (21:04)
[2024-09-18] MEDS: cefTRIAXone (ROCEPHIN) 1 GM VIAL ONE (21:05)
[2024-09-19 03:47] LABS: #Basophils Less than 0.03 10x3/uL (0.0-0.2); %Basophils 0.2 % (0.0-1.0); %Eosinophils 0.6 % (0.0-10.0); %Lymphocytes 5.6 % (21.0-51.0); %Monocytes 4.4 % (0.0-10.0); %Neutrophils 88.7 % (42.0-75.0); Hematocrit 29.4 % (36.0-47.0); Hemoglobin 9.3 g/dL (12.0-16.0); Mean Corpuscular HGB CONC 31.6 g/dL (32.0-36.0); Mean Corpuscular Hemoglobin 32.6 pg (27.0-31.0); Mean Corpuscular Volume 103.2 fL (78.0-98.0); Mean Platelet Volume 10.1 fL (7.4-10.4); Platelet Count 319 10x3/uL (130-400); RBC Distribution Width 14.9 % (11.5-14.5); Red Blood Cell (RBC) Count 2.85 mill/uL (4.20-5.40)
[2024-09-19 03:59] LABS: Anion Gap 14 mmol/L (10-20); BUN (Urea Nitrogen) 12 mg/dL (9.8-20.1); Calc. Creatinine Clearance 48 mL/min (70-130); Calcium 8.4 mg/dL (7.8-10.44); Carbon Dioxide 23 mmol/L (23-31); Chloride 106 mmol/L (98-107); Estimated GFR 63; Glucose 244 mg/dL (83-110); Magnesium 1.8 mg/dL (1.6-2.6); Potassium 4.5 mmol/L (3.5-5.1); Sodium 138 mmol/L (136-145)
[2024-09-19] MEDS: Benzocaine/Menthol 1 LOZ LOZ PO PRN (06:09)
[2024-09-19] MEDS: Perflutren Lipid Microspheres 1.1 MG/ML VIAL ONE (09:33)
[2024-09-19] MEDS: Magnesium 2 GM/50 ML(in water) 2 GM in Premix 1 BAG IVPB SCH (09:34)
[2024-09-19] MEDS: Metoprolol Succinate XL 25 MG ER.TAB PO SCH (09:34)
[2024-09-19] MEDS: Dapagliflozin Propanediol 10 MG TAB PO SCH (09:36)
[2024-09-19] MEDS: Electrolyte Replacement Protocol 1 EACH FS ONE (10:08)
[2024-09-19] MEDS: FLU (Fluad Triv) TS24-25 (65UP)/MF59C/PF 45 MCG/0.5 ML Syringe IM ONE (10:08)
[2024-09-19] MEDS: Benzonatate 100 MG CAP PO PRN (20:53)
[2024-09-20 04:47] LABS: Anion Gap 17 mmol/L (10-20); BUN (Urea Nitrogen) 10 mg/dL (9.8-20.1); Calc. Creatinine Clearance 50 mL/min (70-130); Calcium 9.1 mg/dL (7.8-10.44); Carbon Dioxide 24 mmol/L (23-31); Chloride 105 mmol/L (98-107); Estimated GFR 67; Glucose 214 mg/dL (83-110); Potassium 3.8 mmol/L (3.5-5.1); Sodium 142 mmol/L (136-145)
[2024-09-20] MEDS: Sacubitril 24MG/Valsartan 26 MG TAB PO SCH (10:11)
[2024-09-20] MEDS: Cefdinir 300 MG CAP PO SCH (20:53)
[2024-09-21 03:53] LABS: #Basophils Less than 0.03 10x3/uL (0.0-0.2); #Eosinophils Less than 0.03 10x3/uL (0.0-0.7); %Basophils 0.1 % (0.0-1.0); %Lymphocytes 8.2 % (21.0-51.0); %Monocytes 4.6 % (0.0-10.0); Hematocrit 35.1 % (36.0-47.0); Hemoglobin 11.1 g/dL (12.0-16.0); Mean Corpuscular HGB CONC 31.6 g/dL (32.0-36.0); Mean Corpuscular Hemoglobin 32.6 pg (27.0-31.0); Mean Corpuscular Volume 103.2 fL (78.0-98.0); Mean Platelet Volume 9.7 fL (7.4-10.4); Platelet Count 401 10x3/uL (130-400); RBC Distribution Width 14.2 % (11.5-14.5)
[2024-09-21 04:22] LABS: Anion Gap 17 mmol/L (10-20); BUN (Urea Nitrogen) 11 mg/dL (9.8-20.1); Calc. Creatinine Clearance 47 mL/min (70-130); Calcium 8.7 mg/dL (7.8-10.44); Carbon Dioxide 27 mmol/L (23-31); Chloride 99 mmol/L (98-107); Estimated GFR 63; Glucose 223 mg/dL (83-110); Magnesium 1.5 mg/dL (1.6-2.6); Potassium 3.3 mmol/L (3.5-5.1); Sodium 140 mmol/L (136-145)
[2024-09-21] MEDS: Magnesium 2 GM/50 ML(in water) 2 GM in Premix 1 BAG IVPB SCH ×2 (05:29→12:26)
[2024-09-21] MEDS: Potassium Bicarbonate/Cit Ac 20 MEQ TAB PO SCH (09:53)
[2024-09-21] MEDS ORDERED: Ipratropium/Albuterol 3 ML NEB NEB PRN (10:04)
[2024-09-22 04:50] LABS: Anion Gap 15 mmol/L (10-20); BUN (Urea Nitrogen) 13 mg/dL (9.8-20.1); Calc. Creatinine Clearance 51 mL/min (70-130); Calcium 8.5 mg/dL (7.8-10.44); Carbon Dioxide 30 mmol/L (23-31); Chloride 96 mmol/L (98-107); Estimated GFR 70; Glucose 183 mg/dL (83-110); Magnesium 2.1 mg/dL (1.6-2.6); Potassium 3.5 mmol/L (3.5-5.1); Sodium 137 mmol/L (136-145)
[2024-09-22] MEDS: Potassium Chloride 20 MEQ TAB PO SCH (09:46)
[2024-09-22] MEDS: Insulin Glargine 30 UNITS/0.3 ML VIAL SC SCH (09:53)
[2024-09-22 13:01] VITALS: BP 152/80; TEMP 97.9
== END 2024-09-22 14:28 | disposition home health service (06) | DRG 871 ==
LOC: ERS 16:00 → 2SE 19:22
PROVIDERS: ADMIT Student in an Organized Health Care Education/Training Program; ATTEND Internal Medicine
PROC: 3E03329 Introduction of Other Anti-infective into Peripheral Vein, Percutaneous Approach (ICD-10-PCS; principal; 2024-09-16)
PROC: 4A10X4Z Monitoring of Central Nervous Electrical Activity, External Approach (ICD-10-PCS; 2024-09-20)
DX: A41.51 Sepsis due to Escherichia coli [E. coli] (principal); I21.A1 Myocardial infarction type 2; J96.01 Acute respiratory failure with hypoxia; C34.92 Malignant neoplasm of unspecified part of left bronchus or lung; N17.9 Acute kidney failure, unspecified; E87.1 Hypo-osmolality and hyponatremia; N39.0 Urinary tract infection, site not specified; C79.31 Secondary malignant neoplasm of brain; E87.20 Acidosis, unspecified; E27.40 Unspecified adrenocortical insufficiency; Z66 Do not resuscitate; E03.9 Hypothyroidism, unspecified; F41.9 Anxiety disorder, unspecified; F32.A Depression, unspecified; E87.6 Hypokalemia; R56.9 Unspecified convulsions; I12.9 Hypertensive chronic kidney disease with stage 1 through stage 4 chronic kidney disease, or unspecified chronic kidney disease; E11.22 Type 2 diabetes mellitus with diabetic chronic kidney disease; E83.42 Hypomagnesemia; N18.9 Chronic kidney disease, unspecified; G47.00 Insomnia, unspecified; Z90.710 Acquired absence of both cervix and uterus; Z90.49 Acquired absence of other specified parts of digestive tract; Z87.891 Personal history of nicotine dependence
CPT/HCPCS: 36415; 36416; 70450; 70553; 71045; 71275; 76376; 80048; 80053; 80202; 80306; 80307; 81001; 82550; 82805; 83605; 83735; 83880; 84100; 84146; 84443; 84484; 85025; 85379; 85610; 85730; 87040; 87077; 87081; 87086; 87186; 93005; 93306; 94640; 94760; 95700; 95711; 95957; 96374; 96375; J0696; J1650; J1815; J3370; J3475; J3480; J7120; J7620; Q9957; Q9967

== ENCOUNTER 2024-09-29 15:50 | Inpatient (IN) | payer MEDICARE, MEDICAID ==
[2024-09-29 16:34] LABS: #Basophils 0.07 10x3/uL (0.0-0.2); %Basophils 0.4 % (0.0-1.0); %Eosinophils 0.4 % (0.0-10.0); %Lymphocytes 10.1 % (21.0-51.0); %Monocytes 6.3 % (0.0-10.0); %Neutrophils 82.4 % (42.0-75.0); Hematocrit 39.9 % (36.0-47.0); Hemoglobin 12.8 g/dL (12.0-16.0); Mean Corpuscular HGB CONC 32.1 g/dL (32.0-36.0); Mean Corpuscular Hemoglobin 32.8 pg (27.0-31.0); Mean Corpuscular Volume 102.3 fL (78.0-98.0); Mean Platelet Volume 10.2 fL (7.4-10.4); Platelet Count 326 10x3/uL (130-400); RBC Distribution Width 14.3 % (11.5-14.5)
[2024-09-29 16:55] LABS: ALT (SGPT) Less than 7 U/L (Less than 34); AST (SGOT) 18 U/L (11-34); Albumin 3.4 g/dL (3.1-4.5); Alkaline Phosphatase 67 U/L (40-110); Anion Gap 14 mmol/L (10-20); BUN (Urea Nitrogen) 11 mg/dL (9.8-20.1); Bilirubin, Total 0.5 mg/dL (0.3-1.2); Calc. Creatinine Clearance 0 mL/min (70-130); Calcium 8.4 mg/dL (7.8-10.44); Carbon Dioxide 30 mmol/L (23-31); Chloride 102 mmol/L (98-107); Estimated GFR 61; Glucose 72 mg/dL (83-110); Lipase 14 U/L (8-78); Magnesium 0.9 mg/dL (1.6-2.6); Potassium 2.6 mmol/L (3.5-5.1); Protein, Total 6.4 g/dL (5.8-8.1); Sodium 143 mmol/L (136-145)
[2024-09-29] MEDS ORDERED: Acetaminophen 325 MG TAB PO PRN (18:56)
[2024-09-29] MEDS ORDERED: Acetaminophen 650 MG Suppository PR PRN (18:56)
[2024-09-29] MEDS ORDERED: Dextrose 50% Abboject 50 ML SYRINGE SLOW IVP PRN (18:59)
[2024-09-29] MEDS ORDERED: Dextrose 5% in Water 1,000 ML IV PRN (18:59)
[2024-09-29] MEDS ORDERED: Glucagon 1 MG/ML KIT IM PRN (18:59)
[2024-09-29] MEDS ORDERED: Dextrose 5%-Lactated Ringers 1,000 ML IV SCH (19:00)
[2024-09-29] MEDS ORDERED: Electrolyte Replacement Protocol 1 EACH FS SCH (19:00)
[2024-09-29] MEDS ORDERED: Hydrocortisone Sod Succ/PF 100 mg/2 ml Vial ONE (19:37)
[2024-09-29] MEDS ORDERED: Potassium Chloride 20 MEQ (100 mL) BAG ONE (19:46)
[2024-09-29] MEDS ORDERED: Electrolyte Replacement Protocol FS PRN (20:00)
[2024-09-29] MEDS ORDERED: Lorazepam 0.5 MG TAB PO PRN (20:36)
[2024-09-29] MEDS ORDERED: Ondansetron ODT 4 MG TAB PO PRN (20:36)
[2024-09-29] MEDS ORDERED: Ipratropium/Albuterol 3 ML NEB NEB PRN (20:36)
[2024-09-29 20:56] LABS: Magnesium 1.3 mg/dL (1.6-2.6)
[2024-09-29 20:57] LABS: Lactic Acid 2.51 mmol/L (0.50-2.20)
[2024-09-29 21:17] LABS: Free T4 (Free Thyroxine) 1.05 ng/dL (0.70-1.48); Thyroid Stimulating Hormone 0.5462 uIU/mL (0.35-4.94)
[2024-09-29 22:01] LABS: Anion Gap 17 mmol/L (10-20); BUN (Urea Nitrogen) 10 mg/dL (9.8-20.1); Calc. Creatinine Clearance 0 mL/min (70-130); Carbon Dioxide 23 mmol/L (23-31); Chloride 106 mmol/L (98-107); Estimated GFR 72; Glucose 63 mg/dL (83-110); Potassium 3.1 mmol/L (3.5-5.1); Sodium 143 mmol/L (136-145)
[2024-09-29] MEDS: Dextrose 10% in Water 1,000 ML IV SCH (23:30)
[2024-09-29 23:43] VITALS: BMI 22.5
[2024-09-30] MEDS: Zolpidem Tartrate 5 MG TAB PO PRN (00:46)
[2024-09-30] MEDS: Famotidine 20 MG TAB PO SCH (01:02)
[2024-09-30] MEDS: Sacubitril 24MG/Valsartan 26 MG TAB PO SCH (01:03)
[2024-09-30] MEDS: levETIRAcetam 500 MG TAB PO SCH (01:03)
[2024-09-30] MEDS: Hydrocortisone Sod Succ/PF 100 mg/2 ml Vial IVP SCH (01:03)
[2024-09-30] MEDS: Hydrocortisone 10 mg Tablet PO SCH (01:03)
[2024-09-30] MEDS: Magnesium Sulfate In Water 4 GM in Premix 1 BAG IVPB SCH (01:04)
[2024-09-30] MEDS: LevoFLOXacin 750 MG TAB PO SCH ×2 (01:04→21:42)
[2024-09-30] MEDS: Communication Order-Pharmacy FS ONE (01:04)
[2024-09-30] MEDS: LevoFLOXacin 750 mg/D5W 750 MG in Premix 1 BAG IVPB SCH (01:06)
[2024-09-30 04:42] LABS: #Basophils Less than 0.03 10x3/uL (0.0-0.2); %Basophils 0.2 % (0.0-1.0); %Eosinophils 0.3 % (0.0-10.0); %Lymphocytes 8.4 % (21.0-51.0); %Monocytes 4.5 % (0.0-10.0); %Neutrophils 86.3 % (42.0-75.0); Hematocrit 34.6 % (36.0-47.0); Hemoglobin 11.2 g/dL (12.0-16.0); Mean Corpuscular HGB CONC 32.4 g/dL (32.0-36.0); Mean Corpuscular Hemoglobin 32.7 pg (27.0-31.0); Mean Corpuscular Volume 100.9 fL (78.0-98.0); Mean Platelet Volume 10.3 fL (7.4-10.4); Platelet Count 277 10x3/uL (130-400); RBC Distribution Width 14.4 % (11.5-14.5); Red Blood Cell (RBC) Count 3.43 mill/uL (4.20-5.40)
[2024-09-30 04:58] LABS: Anion Gap 11 mmol/L (10-20); BUN (Urea Nitrogen) 10 mg/dL (9.8-20.1); Calc. Creatinine Clearance 50 mL/min (70-130); Calcium 7.8 mg/dL (7.8-10.44); Carbon Dioxide 30 mmol/L (23-31); Chloride 104 mmol/L (98-107); Estimated GFR 64; Glucose 180 mg/dL (83-110); Magnesium 2.5 mg/dL (1.6-2.6); Potassium 3.5 mmol/L (3.5-5.1); Sodium 141 mmol/L (136-145)
[2024-09-30] MEDS: Levothyroxine Sodium 112 MCG TAB PO SCH (05:37)
[2024-09-30] MEDS: Liothyronine Sodium 5 MCG TAB PO SCH (08:25)
[2024-09-30] MEDS: valACYclovir 500 MG TAB PO SCH (08:25)
[2024-09-30] MEDS: Enoxaparin 30 MG (0.3 mL) SYRINGE SC SCH (08:25)
[2024-09-30] MEDS: Potassium Chloride 20 MEQ TAB PO SCH (08:25)
[2024-09-30] MEDS: Ferrous Sulfate 325 MG TAB PO SCH (08:26)
[2024-09-30] MEDS: Pantoprazole 40 MG DR.TAB PO SCH (08:26)
[2024-09-30] MEDS: Polyethylene Glycol 3350 17 GM Packet PO SCH (08:26)
[2024-09-30] MEDS: cloNIDine 0.1 MG TAB PO PRN (09:16)
[2024-09-30] MEDS: methylPREDNISolone Sod Succ 40 MG VIAL IVP SCH (09:16)
[2024-09-30] MEDS: Ipratropium/Albuterol 3 ML NEB NEB SCH (10:11)
[2024-09-30] MEDS: Dextrose 5% in Water 1,000 ML IV SCH (13:40)
[2024-09-30] MEDS ORDERED: Glucagon 1 MG/ML KIT IM PRN (14:19)
[2024-09-30] MEDS ORDERED: Dextrose 50% Abboject 50 ML SYRINGE SLOW IVP PRN (14:19)
[2024-09-30] MEDS ORDERED: Dextrose 5% in Water 1,000 ML IV PRN (14:19)
[2024-09-30] MEDS: Potassium Chloride 20 MEQ in Lactated Ringer's 1,000 ML IV SCH (15:45)
[2024-09-30] MEDS: Insulin Lispro 100 UNIT/ML 10 ML VIAL SC PRN (17:29)
[2024-09-30] MEDS ORDERED: LevoFLOXacin 750 mg/D5W 750 MG in Premix 1 BAG IVPB SCH (21:00)
[2024-09-30] MEDS ORDERED: Ipratropium/Albuterol 3 ML NEB NEB PRN (23:18)
[2024-10-01] MEDS: Enoxaparin 40 MG (0.4 mL) SYRINGE SC SCH (09:15)
[2024-10-01] MEDS: Famotidine 20 MG TAB PO SCH (09:15)
[2024-10-01 09:50] LABS: Phosphorus 3.5 mg/dL (2.5-4.5)
[2024-10-01 09:52] LABS: Anion Gap 10 mmol/L (10-20); BUN (Urea Nitrogen) 10 mg/dL (9.8-20.1); Calc. Creatinine Clearance 48 mL/min (70-130); Calcium 8.3 mg/dL (7.8-10.44); Carbon Dioxide 27 mmol/L (23-31); Chloride 104 mmol/L (98-107); Estimated GFR 61; Glucose 205 mg/dL (83-110); Magnesium 1.4 mg/dL (1.6-2.6); Potassium 4.1 mmol/L (3.5-5.1); Sodium 137 mmol/L (136-145)
[2024-10-01] MEDS: Magnesium Sulfate In Water 4 GM in Premix 1 BAG IVPB SCH (10:10)
[2024-10-01] MEDS: Magnesium Oxide 400 MG TAB PO SCH (21:45)
[2024-10-02 04:52] LABS: %Monocytes 6.8 % (0.0-10.0); %Neutrophils 86.6 % (42.0-75.0); Hematocrit 30.7 % (36.0-47.0); Hemoglobin 10.1 g/dL (12.0-16.0); Mean Corpuscular HGB CONC 32.9 g/dL (32.0-36.0); Mean Corpuscular Hemoglobin 32.6 pg (27.0-31.0); Mean Platelet Volume 10.6 fL (7.4-10.4); Platelet Count 240 10x3/uL (130-400); RBC Distribution Width 14.4 % (11.5-14.5)
[2024-10-02 04:53] LABS: #Basophils Less than 0.03 10x3/uL (0.0-0.2); #Eosinophils Less than 0.03 10x3/uL (0.0-0.7); %Basophils 0.1 % (0.0-1.0)
[2024-10-02 05:18] LABS: Anion Gap 12 mmol/L (10-20); BUN (Urea Nitrogen) 13 mg/dL (9.8-20.1); Calc. Creatinine Clearance 45 mL/min (70-130); Calcium 8.3 mg/dL (7.8-10.44); Carbon Dioxide 29 mmol/L (23-31); Chloride 102 mmol/L (98-107); Estimated GFR 57; Glucose 198 mg/dL (83-110); Magnesium 1.9 mg/dL (1.6-2.6); Potassium 3.5 mmol/L (3.5-5.1); Sodium 139 mmol/L (136-145)
[2024-10-02] MEDS: Magnesium 2 GM/50 ML(in water) 2 GM in Premix 1 BAG IVPB SCH (05:54)
[2024-10-02] MEDS: Potassium Chloride 20 MEQ TAB PO SCH (05:54)
[2024-10-02] MEDS: Escitalopram Oxalate 10 mg Tablet PO SCH (08:53)
[2024-10-02] MEDS: Metoprolol Succinate XL 25 MG ER.TAB PO SCH (08:54)
[2024-10-02] MEDS: Dapagliflozin Propanediol 10 MG TAB PO SCH (08:54)
[2024-10-02 09:51] VITALS: TEMP 98
[2024-10-02 09:52] VITALS: BP 162/82
== END 2024-10-02 14:00 | disposition home or self-care (01) | DRG 871 ==
LOC: ERS 15:50 → ERHOLD 19:02 → IMCU/EMU 22:41 → MSONC 09-30 15:27
PROVIDERS: ADMIT Family Medicine; ATTEND Internal Medicine
DX: A41.9 Sepsis, unspecified organism (principal); G93.41 Metabolic encephalopathy; J69.0 Pneumonitis due to inhalation of food and vomit; E87.20 Acidosis, unspecified; E27.40 Unspecified adrenocortical insufficiency; I50.22 Chronic systolic (congestive) heart failure; J98.11 Atelectasis; E11.649 Type 2 diabetes mellitus with hypoglycemia without coma; E87.6 Hypokalemia; E86.0 Dehydration; Z66 Do not resuscitate; E83.42 Hypomagnesemia; F41.9 Anxiety disorder, unspecified; E03.9 Hypothyroidism, unspecified; F32.A Depression, unspecified; I11.0 Hypertensive heart disease with heart failure; J44.9 Chronic obstructive pulmonary disease, unspecified; Z91.148 Patient's other noncompliance with medication regimen for other reason; Z90.49 Acquired absence of other specified parts of digestive tract; Z90.712 Acquired absence of cervix with remaining uterus; Z85.118 Personal history of other malignant neoplasm of bronchus and lung; Z92.21 Personal history of antineoplastic chemotherapy; Z92.3 Personal history of irradiation; Z92.25 Personal history of immunosuppression therapy; Z87.891 Personal history of nicotine dependence; Z79.52 Long term (current) use of systemic steroids; Z79.890 Hormone replacement therapy; Z79.899 Other long term (current) drug therapy; Z79.4 Long term (current) use of insulin; Z79.891 Long term (current) use of opiate analgesic
CPT/HCPCS: 36415; 36416; 71045; 80048; 80053; 82533; 83605; 83690; 83735; 84100; 84439; 84443; 84481; 85025; 87040; 93005; 94640; 96365; 96375; 96376; J1650; J1720; J1815; J2919; J3475; J3480; J7070; J7120; J7620